=== PATIENT | female | born 1995 | race Hispanic/Latino ===

== ENCOUNTER 2019-09-11 16:41 | Inpatient (IN) | payer OTHER, SELFPAY ==
[2019-09-11] MEDS ORDERED: NA CHLORIDE 0.9% 2,000 ML ONE (17:33)
[2019-09-11] MEDS ORDERED: CEFTRIAXONE/SWI 1gm 1 GM/10 ML SYR ONE (17:33)
[2019-09-11 17:42] LABS: Absolute Lymphocytes (CBC) 0.7 K/uL (0.7-4.9); Basophils % 0.6 % (0-1.3); Hematocrit 29.1 % (36.0-45.0); Lymphocytes % 5.1 % (15.3-44.8); MPV 8.7 fL (7.6-11.3); RBC Red Blood Cell Count 4.83 M/uL (3.86-4.86)
[2019-09-11 18:11] LABS: Albumin 3.4 g/dL (3.4-5.0); Bilirubin Direct 0.3 mg/dL (0-0.2); Bilirubin Total 0.9 mg/dL (0.2-1.0); Potassium 3.1 mmol/L (3.5-5.1); Protein, Total 8.7 g/dL (6.4-8.2)
[2019-09-11 18:14] LABS: Urine White Blood Cell Casts OK
[2019-09-11 18:15] LABS: Blood Morphology Comment NOTED (NOT SEEN); Dohle Bodies NOTED; Hypochromasia 2+; Platelet Estimate ADEQ
[2019-09-11] MEDS ORDERED: ACETAMINOPHEN 500 MG TAB ONE (18:35)
[2019-09-11 18:53] LABS: Urine Bacteria >50 /HPF (<20)
[2019-09-11 18:54] LABS: Urine Culture Reflex Order NOT NEEDED
--- NOTE | 2019-09-11 19:07 | RAD REPORT ---
EXAM DESCRIPTION: CT - Abdomen Pelvis W Contrast - 09/11/2019 6:49 pm CLINICAL HISTORY: Abdominal pain COMPARISON: none. TECHNIQUE: Computed axial tomography of the abdomen pelvis was obtained. 100 cc Isovue-300 was admin istered intravenously. Oral contrast was not requested which limits evaluation of bowel. All CT scans are performed using dose optimization technique as appropriate and may include automated exposure control or mA/KV adjustment according to patient size. FINDINGS: The liver, spleen, pancreas, adrenal and left kidney appear unremarkable. Multiple low-density areas are scattered throughout right kidney extending to the periphery compatibl e with pyelonephritis. Stranding is seen within the perirenal fat. No hydronephrosis. There is no evidence of diverticulitis. A small umbilical hernia is present IMPRESSION: Moderate to marked right pyelonephritis
[2019-09-11 19:13] LABS: Urine Blood 2+ (NEG); Urine Glucose NEGATIVE (NEG); Urine Protein 2+ (NEG); Urine Specific Gravity 1.015 (1.005-1.030); Urine pH 5.5 (5.0-7.0)
--- NOTE | 2019-09-11 19:42 | ER ---
Nurse's Notes [facility] Name: Remington Maria Age: 24 yrs Sex: Female : 1995 Arrival Date: 09/11/2019 Time: 16:45 Bed 4 Private MD: Diagnosis: Sepsis;Pyelonephritis Presentation: 09/11 17:13 Presenting complaint: Patient states: Burning w/ urination, R mid back pain, nausea, ph and headache. Transition of care: patient was not received from another setting of care. Onset of symptoms was September 11, 2019. Risk Assessment: Do you want to hurt yourself or someone else? Patient reports no desire to harm self or others. Initial Sepsis Screen: Does the patient meet any 2 criteria? Temp <36.0*C (96.8*F)) or > 38.3*C (100.9*F). HR > 90 bpm. Yes Does the patient have a suspected source of infection? Yes: Dysuria/Frequency/Urgency/UTI. Care prior to arrival: Medication(s) given: Tylenol. 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 - Social history:: Smoking status: Patient/guardian denies using tobacco. - Ebola Screening: : No symptoms or risks identified at this time. Screenin:40 Abuse screen: Denies threats or abuse. Denies injuries from another. Nutritional hb screening: No deficits noted. Tuberculosis screening: No symptoms or risk factors identified. Fall Risk None identified. Assessment: 17:23 Reassessment: code sepsis called. iw 17:30 General: Appears in no apparent distress. ill, Behavior is calm, cooperative. hb 17:30 Pain: Pain currently is 4 out of 10 on a pain scale. Neuro: Level of Consciousness is hb awake, alert, obeys commands, Oriented to person, place, time, situation. Cardiovascular: Capillary refill < 3 seconds Patient's skin is warm and dry. Respiratory: Airway is patent Respiratory effort is even, unlabored, Respiratory pattern is regular, symmetrical, Breath sounds are clear bilaterally. GI: No signs and/or symptoms were reported involving the gastrointestinal system. : Reports right flank pain, pain with urination, urinary frequency and urgency. EENT: No signs and/or symptoms were reported regarding the EENT system. Derm: Skin is pink, warm \T\ dry. Musculoskeletal: No signs and/or symptoms reported regarding the musculoskeletal system. 17:36 Reassessment: Susan at bedside for blood culture second set prior to abx administered. sg 18:37 Reassessment: Pt c/o headache, CT [place] notified, tylenol administered as ordered. Bea ortega in CT notified of neg UPT. 18:37 Reassessment: Patient appears in no apparent distress at this time. pt reports headache sg described as pounding, is alleviated by applying pressure to the head with her hands. 20:29 Reassessment: Patient appears in no apparent distress at this time. No changes from ak1 previously documented assessment. Patient is alert, oriented x 3, equal unlabored respirations, skin warm/dry/pink. General: Appears Behavior is calm, cooperative. Vital Signs: 17:16 BP 101 / 73; Pulse 149; Resp 20; Temp 101.3; Pulse Ox 98% on R/A; Weight 61.23 kg; ph Height 5 ft. 6 in. (167.64 cm); 18:28 BP 106 / 70; Pulse 110; Resp 19 S; Temp 100.1; Pulse Ox 99% on R/A; Pain 8/10; sg 20:29 BP 103 / 65; Pulse 100; Resp 16; Temp 98.9; Pulse Ox 99% on R/A; ak1 21:17 BP 110 / 74; Pulse 116; Resp 18; Temp 98.9; Pulse Ox 100% on R/A; ak1 17:16 Body Mass Index 21.79 (61.23 kg, 167.64 cm) ph ED Course: 16:45 Patient arrived in ED. mr 17:16 Triage completed. ph 17:18 Arm band placed on. ph 17:20 Art Powers PA is PHCP. [facility] 17:20 Hiren Johnson MD is Attending Physician. [facility] 17:25 Inserted saline lock: 20 gauge in right antecubital area, using aseptic technique. hb Blood collected. 17:25 First set of blood cultures drawn by me. hb 17:30 Marybeth Walker, RN is Primary Nurse. hb 17:40 Patient has correct armband on for positive identification. Placed in gown. Bed in low hb position. Call light in reach. Side rails up X 1. 17:40 Second set of blood cultures drawn by lab staff. hb 18:30 Radiology exam delayed due to test not completed at this time. bq 18:47 CT completed. Patient tolerated procedure well. Patient moved back from CT. bq 18:49 CT Abd/Pelvis - IV Contrast Only In Process Unspecified. EDMS 19:22 Primary Nurse role handed off by Marybeth Walker, MARY ak1 19:22 Lola Krueger RN is Primary Nurse. ak1 19:40 Kate Yan MD is Hospitalizing Provider. m 20:31 No provider procedures requiring assistance completed. Patient admitted, IV remains in ak1 place. Administered Medications: 17:40 Drug: NS 0.9% (30 ml/kg) 30 ml/kg Route: IV; Rate: bolus; Site: right antecubital; hb 18:37 Follow up: Response: No adverse reaction; IV Status: Completed infusion; IV Intake: hb 2000ml 18:50 Follow up: Response: No adverse reaction; IV Status: Completed infusion; IV Intake: sg 2000ml 17:41 Drug: Rocephin - (cefTRIAXone) 1 grams Route: IVPB; Infused Over: 30 mins; Site: right hb antecubital; 17:42 Follow up: IV Status: Completed infusion; IV Intake: 10ml hb 18:37 Follow up: Response: No adverse reaction hb 18:36 Drug: Tylenol 1000 mg Route: PO; hb 19:00 Follow up: Response: No adverse reaction sg Intake: 17:42 IV: 10ml; Total: 10ml. hb 18:37 IV: 2000ml; Total: 2010ml. hb 18:50 IV: 2000ml; Total: 4010ml. sg Outcome: 19:41 Decision to Hospitalize by Provider. andrae 21:08 Admitted to Med/surg accompanied by tech, family with patient, via wheelchair, room ak1 423, with chart, Report called to Kylie 21:08 Condition: stable 21:08 Instructed on the need for admit. 21:43 Patient left the ED. ak1 Signatures: Dispatcher [employer] EDMS Beto Madera, RN RN Art Rivera PA PA jmm Rivera, Mary mr Bea Olvera Irene RN Lola Jones RN RN ak1 Kassandra Muhammad RN RN ph Baxter, Heather, RN RN
--- NOTE | 2019-09-11 19:42 | EDPHYS ---
Physician Documentation [facility] Name: Remington Maria Age: 24 yrs Sex: Female : 1995 Arrival Date: 09/11/2019 Time: 16:45 Bed 4 Private MD: ED Physician Hiren Johnson HPI: 09/11 17:31 This 24 yrs old Female presents to ER via Ambulatory with complaints of jmm Headache, Back Pain, Urinary Problem, Leg Pain. 17:31 The patient complains of pain in the right flank. Onset: The symptoms/episode jmm began/occurred gradually, 1 week(s) ago. Modifying factors: The symptoms are alleviated by nothing. the symptoms are aggravated by nothing. Associated signs and symptoms: Pertinent positives: dysuria, fever, nausea, vomiting. This is a 24 year old female with no chronic medical conditions that presents to the ED with complaints of right flank pain beginning 1 week ago. patient developed body aches and fever today. patient stated having dysuria on and off for the past 2 weeks. . 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 - Social history:: Smoking status: Patient/guardian denies using tobacco. - Ebola Screening: : No symptoms or risks identified at this time. ROS: 17:31 Constitutional: Negative for fever, chills, and weight loss, Cardiovascular: Negative jmm for chest pain, palpitations, and edema, Respiratory: Negative for shortness of breath, cough, wheezing, and pleuritic chest pain. 17:31 Abdomen/GI: Positive for nausea, vomiting, and diarrhea. 17:31 Back: Positive for flank pain, on the right. 17:31 : Positive for urinary symptoms. 17:31 Neuro: Positive for headache. 17:31 All other systems are negative. Exam: 17:31 Constitutional: This is a well developed, well nourished patient who is awake, alert, jmm and in no acute distress. Head/Face: atraumatic. Eyes: EOMI, no conjunctival erythema appreciated ENT: Moist Mucus Membranes Neck: Trachea midline, Supple Chest/axilla: Normal chest wall appearance and motion. 17:31 Respiratory: Normal respirations, no respiratory distress appreciated Abdomen/GI: Non distended, soft Back: Normal ROM Skin: General appearance color normal MS/ Extremity: Moves all extremities, no obvious deformities appreciated, no edema noted to the lower extremities Neuro: Awake and alert, normal gait Psych: Behavior is normal, Mood is normal, Patient is cooperative and pleasant 17:31 Cardiovascular: Rate: tachycardic, Rhythm: regular. 17:31 Back: CVA tenderness, that is mild, is noted on the right. Vital Signs: 17:16 BP 101 / 73; Pulse 149; Resp 20; Temp 101.3; Pulse Ox 98% on R/A; Weight 61.23 kg; ph Height 5 ft. 6 in. (167.64 cm); 18:28 BP 106 / 70; Pulse 110; Resp 19 S; Temp 100.1; Pulse Ox 99% on R/A; Pain 8/10; sg 20:29 BP 103 / 65; Pulse 100; Resp 16; Temp 98.9; Pulse Ox 99% on R/A; ak1 21:17 BP 110 / 74; Pulse 116; Resp 18; Temp 98.9; Pulse Ox 100% on R/A; ak1 17:16 Body Mass Index 21.79 (61.23 kg, 167.64 cm) ph MDM: 17:31 Patient medically screened. [facility] 19:39 Data reviewed: vital signs, nurses notes. Counseling: I had a detailed discussion with [facility] the patient and/or guardian regarding: the historical points, exam findings, and any diagnostic results supporting the discharge/admit diagnosis, lab results, radiology results, the need for further work-up and treatment in the hospital. ED course: Procalcitonin is elevated. Patient continues to have pain. Will admit for IV abx and further observation. . 09/11 17:32 Order name: Basic Metabolic Panel; Complete Time: 18:17 [facility] 09/11 17:32 Order name: CBC with Diff; Complete Time: 18:17 [facility] 09/11 17:32 Order name: Creatinine for Radiology; Complete Time: 18:17 [facility] 09/11 17:32 Order name: Hepatic Function; Complete Time: 18:17 [facility] 09/11 17:32 Order name: Lipase; Complete Time: 18:17 [facility] 09/11 17:32 Order name: Lactate; Complete Time: 18:17 [facility] 09/11 17:32 Order name: Procalcitonin; Complete Time: 19:10 [facility] 09/11 17:32 Order name: Blood Culture Adult (2) [facility] 09/11 17:34 Order name: Urine Culture [facility] 09/11 17:34 Order name: Urine Microscopic Only; Complete Time: 19:10 [facility] 09/11 17:51 Order name: CBC Smear Scan; Complete Time: 18:17 [facility] 09/11 18:18 Order name: Flu; Complete Time: 19:10 [facility] 09/11 18:56 Order name: Urine Dipstick--Ancillary (enter results) [facility] 09/11 18:56 Order name: Urine --Ancillary (enter results) [facility] 09/11 18:20 Order name: CT Abd/Pelvis - IV Contrast Only; Complete Time: 19:10 [facility] 09/11 20:29 Order name: CBC with Automated Diff [facility] 09/11 20:29 Order name: CBC with Automated Diff [facility] 09/11 20:29 Order name: Comprehensive Metabolic Panel [facility] 09/11 20:29 Order name: Comprehensive Metabolic Panel [facility] 09/11 20:29 Order name: C-Reactive Protein [facility] 09/11 20:29 Order name: C-Reactive Protein [facility] 09/11 20:29 Order name: Procalcitonin [facility] 09/11 20:29 Order name: Procalcitonin [facility] 09/11 20:29 Order name: Protime (+INR) [facility] 09/11 20:29 Order name: Protime (+INR) [facility] 09/11 20:29 Order name: PTT, Activated Partial Thromb [facility] 09/11 20:29 Order name: PTT, Activated Partial Thromb [facility] 09/11 20:29 Order name: Lactate [facility] 09/11 20:29 Order name: Lactate [facility] 09/11 17:32 Order name: IV Saline Lock; Complete Time: 17:43 [facility] 09/11 17:32 Order name: Labs collected and sent; Complete Time: 17:43 [facility] 09/11 17:34 Order name: Urine Dipstick-Ancillary (obtain specimen); Complete Time: 18:36 [facility] 09/11 20:29 Order name: CONS Pharmacy Consult [facility] 09/11 20:29 Order name: Regular [facility] Administered Medications: 17:40 Drug: NS 0.9% (30 ml/kg) 30 ml/kg Route: IV; Rate: bolus; Site: right antecubital; hb 18:37 Follow up: Response: No adverse reaction; IV Status: Completed infusion; IV Intake: hb 2000ml 18:50 Follow up: Response: No adverse reaction; IV Status: Completed infusion; IV Intake: sg 2000ml 17:41 Drug: Rocephin - (cefTRIAXone) 1 grams Route: IVPB; Infused Over: 30 mins; Site: right hb antecubital; 17:42 Follow up: IV Status: Completed infusion; IV Intake: 10ml hb 18:37 Follow up: Response: No adverse reaction hb 18:36 Drug: Tylenol 1000 mg Route: PO; hb 19:00 Follow up: Response: No adverse reaction sg Disposition: 09/12 07:26 Co-signature as Attending Physician, Hiren Johnson MD I agree with the assessment and kdr plan of care. Disposition: 09/11/19 19:41 Hospitalization ordered by Kate Yan for Inpatient Admission. Preliminary diagnosis are Sepsis, Pyelonephritis. - Bed requested for Telemetry/MedSurg (Inpatient). - Status is Inpatient Admission. ak1 - Condition is Stable. - Problem is new. - Symptoms are unchanged. UTI on Admission? Yes Signatures: Dispatcher [employer] [facility] Hiren Johnson MD MD kdr Mickail, Joel, PA PA [facility] Lola Krueger RN RN ak Kassandra Muhammad RN RN Sarahi Oswald RN RN Marybeth Walker RN RN Beto Madera RN sg Corrections: (The following items were deleted from the chart) 09/11 21:00 19:41 Hospitalization Ordered by Kate Yan MD for Inpatient Admission. Preliminary diagnosis is Sepsis; Pyelonephritis. Bed requested for Telemetry/MedSurg (Inpatient). Status is Inpatient Admission. Condition is Stable. Problem is new. Symptoms are unchanged. UTI on Admission? Yes. yesenia 21:43 21:00 09/11/2019 19:41 Hospitalization Ordered by Kate Yan MD for Inpatient ak1 Admission. Preliminary diagnosis is Sepsis; Pyelonephritis. Bed requested for Telemetry/MedSurg (Inpatient). Status is Inpatient Admission. Condition is Stable. Problem is new. Symptoms are unchanged. UTI on Admission? Yes. cg
[2019-09-11] MEDS ORDERED: MORPHINE 4 MG/ML SYR IV PRN (20:20)
[2019-09-11] MEDS ORDERED: ONDANSETRON 4 MG/2 ML VIAL IV PRN (20:20)
[2019-09-11] MEDS ORDERED: NA CHLORIDE 0.9% 1,000 ML IV ONE (22:41)
[2019-09-11] MEDS: ACETAMINOPHEN 325 MG TABLET PO SCH (23:00)
[2019-09-11] MEDS: NA CHLORIDE 0.9% 1,000 ML IV SCH (23:01)
[2019-09-11 23:13] VITALS: BMI 22.2
[2019-09-12] MEDS: NA CHLORIDE 0.9% 1,000 ML IV SCH ×3 (04:25→19:47)
[2019-09-12] MEDS: ACETAMINOPHEN 500 MG TAB PO PRN ×3 (04:25→19:51)
[2019-09-12 06:06] LABS: Absolute Lymphocytes (CBC) 0.4 K/uL (0.7-4.9); Basophils % 0.2 % (0-1.3); Hematocrit 20.5 % (36.0-45.0); Lymphocytes % 4.5 % (15.3-44.8); MPV 8.8 fL (7.6-11.3); RBC Red Blood Cell Count 3.39 M/uL (3.86-4.86)
[2019-09-12 06:11] LABS: Protime INR 1.27
[2019-09-12 07:06] LABS: Hematocrit 20.7 % (36.0-45.0)
--- NOTE | 2019-09-12 08:08 | P.HP ---
Certification for Inpatient Patient admitted to: Inpatient With expected LOS: >2 Midnights Patient will require the following post-hospital care: None Practitioner: I am a practitioner with admitting privileges, knowledge of patient current condition, hospital course, and medical plan of care. Services: Services provided to patient in accordance with Admission requirements found in Title 42 Section 412.3 of the Code of Federal Regulations Patient History Date of Service: 09/11/19 Reason for admission: [id number] History of Present Illness: Patient is a 24-year-old female came to the hospital with right-sided pyelonephritis. Patient was having flank tenderness for the last couple of days. She also started having nausea and vomiting. She has had prior UTIs and had a kidney infection few years ago but prior to that she does not really have any medical issues. She recently had a normal and she states her child is doing well. She is currently breast-feeding. She is not wanting to take a lot of medications that could affect the baby. At this time, she does have a significant right-sided pyelonephritis. Her procalcitonin level is elevated. Will go ahead and hydrate her aggressively and continue IV antibiotics. Await urine culture and blood culture results. Hopefully we can get her infection under better control over the next 24-48 hr. She is positive for systemic inflammatory response. Will continue monitoring her closely during her hospitalization. Allergies No Known Allergies Allergy (Verified 12/09/12 05:26) Home Medications: NK [No Home Meds] 09/11/19 - Past Medical/Surgical History Has patient received pneumonia vaccine in the past: No Diabetic: No -: Normal vaginal delivery Past Surgical History: Patient denies surgical history - Family History Father Family History: Reviewed- Non-Contributory - Social History Smoking Status: Never smoker Alcohol use: No CD- Drugs: No Caffeine use: Yes Place of Residence: Home Review of Systems 10-point ROS is otherwise unremarkable Physical Examination - Vital Signs Temperature: 98.8 F Blood Pressure: 115/64 Pulse: 112 Respirations: 16 Pulse Ox (%): 100 - Physical Exam General: Alert, In no apparent distress, Oriented x3 HEENT: Atraumatic, PERRLA, Mucous membr. moist/pink, EOMI, Sclerae nonicteric Neck: Supple, 2+ carotid pulse no bruit, No LAD, Without JVD or thyroid abnormality Respiratory: Clear to auscultation bilaterally, Normal air movement Cardiovascular: Regular rate/rhythm, Normal S1 S2, No murmurs Gastrointestinal: Normal bowel sounds, Soft and benign, Non-distended, No rebound, No guarding, Tenderness Musculoskeletal: No clubbing, No swelling, No tenderness Integumentary: No rashes Neurological: Normal gait, Normal speech, Normal strength at 5/5 x4 extr, Normal tone, Sensation intact, Cranial nerves 3-12 intact, Normal affect Lymphatics: No axilla or inguinal lymphadenopathy - Studies Laboratory Data (last 24 hrs) 09/11/19 17:30: Creatinine 1.06 09/11/19 17:30: WBC 12.9 H, Hgb 9.4 L, Hct 29.1 L, Plt Count 191 09/11/19 17:30: Sodium 131 L, Potassium 3.1 L, BUN 10, Creatinine 1.10, Glucose 132 H, Total Bilirubin 0.9, AST 21, ALT 21, Alkaline Phosphatase 88, Lipase 182 Microbiology Data (last 24 hrs): 09/11/19 18:23 Nasopharnyx Influenza Type A Antigen Screen - Final 09/11/19 18:23 Nasopharnyx Influenza Type B Antigen Screen - Final Assessment & Plan - Problems (Diagnosis) (1) Pyelonephritis of right kidney Current Visit: Yes Status: Acute (2) Anemia Current Visit: Yes Status: Acute (3) Mother currently breast-feeding Current Visit: Yes Status: Acute - Plan 1. Continue with IV hydration 2. Continue with IV antibiotics 3. Continue with pain control; schedule Tylenol for 24hrs; then p.r.n. 4. Diet as tolerated 5. Monitor medications closely as patient is 6. We will monitor CBC, BMP, LFTs closely 7. GI and DVT prophylaxis Discharge Plan: Home Plan to discharge in: Greater than 2 days - Advance Directives Does patient have a Living Will: No Does patient have a Durable POA for Healthcare: No - Code Status/Comfort Care Code Status Assessed: Yes Code Status: Full Code Critical Care: No Time Spent Managing PTS Care (In Minutes): 45
--- NOTE | 2019-09-12 08:10 | P.PN ---
Date of Service: 09/12/19 Patient is doing well. She is feeling a little bit better with no new complaints. She still getting tachycardic when moving. Repeat labs in the morning. Repeat procalcitonin level as well Sepsis Focused Assessment - Focused Assessment Complete? Sepsis Focused Assessment Completed?: Yes - Sepsis Screen Result Severe Sepsis: Positive - Evaluation Current stage of sepsis: Severe sepsis - Vital Signs Reviewed: Yes Temperature: 99.5 F Heart rate: 126 Blood Pressure: 115/64 Respiratory Rate: 16 O2 Sat by Pulse Oximetry: 100 - Examination Date exam was performed: 09/12/19 Time exam was performed: 04:00 Heart: Tachycardia Lungs: Clear bilaterally Peripheral pulses: 3+ Normal Peripheral pulse location: Radial Capillary refill: <2 Seconds Skin examination: Normal turgor
[2019-09-12 08:12] LABS: ALT/SGPT 14 U/L (12-78); AST/SGOT 14 U/L (15-37); Albumin 2.3 g/dL (3.4-5.0); Alkaline Phosphatase 60 U/L (45-117); BUN Blood Urea Nitrogen 8 mg/dL (7-18); Bicarbonate 22 mmol/L (21-32); Bilirubin Total 0.5 mg/dL (0.2-1.0); Glucose Level 112 mg/dL (74-106); Potassium 3.1 mmol/L (3.5-5.1); Protein, Total 5.9 g/dL (6.4-8.2); Sodium Level 137 mmol/L (136-145)
[2019-09-12 08:59] LABS: Ferritin 64.5 ng/mL (8-388)
--- NOTE | 2019-09-12 10:11 | EKG ---
Test Date: 2019-09-11 Test Time: 17:33:07 Museum Docent: SWG MEASUREMENT RESULTS: Intervals: Rate: 138 CA: 116 QRSD: 76 QT: 286 QTc: 433 [place]: P: 53 CA: 116 QRS: -55 T: 6 INTERPRETIVE STATEMENTS: Sinus tachycardia Left anterior fascicular block Nonspecific T wave abnormality Abnormal ECG No previous ECG available for comparison Electronically Signed On 09-12-19 10:10:45 SEWER by Jh Haq
[2019-09-12] MEDS ORDERED: NA CHLORIDE 0.9% 250 ML ONE (10:22)
[2019-09-12] MEDS ORDERED: TRAMADOL HCL 50 MG TAB PO PRN (12:06)
[2019-09-12] MEDS ORDERED: HYDROCODONE/APAP 7.5/325 MG TAB PO PRN (12:06)
--- NOTE | 2019-09-12 12:12 | P.PN ---
Subjective Date of Service: 09/12/19 Primary Care Provider: [employer]OC[employer]ba Chief Complaint: [id number] Subjective: Other (Patient feeling better. Less pain noted.) Physical Examination - Vital Signs Temperature: 99.9 F Blood Pressure: 105/57 Pulse: 126 Respirations: 16 Pulse Ox (%): 100 - Physical Exam General: Alert, In no apparent distress, Oriented x3, Cooperative HEENT: Atraumatic Neck: Supple Respiratory: Clear to auscultation bilaterally, Normal air movement Cardiovascular: Abnormal pulses (Mild sinus tachycardia) Gastrointestinal: Normal bowel sounds, Soft and benign, Non-distended, Tenderness (Less pain to the right flank) Musculoskeletal: No erythema, No tenderness, No warmth Integumentary: No tenderness/swelling, No erythema, No warmth, No cyanosis Neurological: Normal speech, Normal strength at 5/5 x4 extr, Normal tone, Normal affect - Studies Laboratory Data (last 24 hrs) 09/11/19 17:30: Creatinine 1.06 09/11/19 17:30: WBC 12.9 H, Hgb 9.4 L, Hct 29.1 L, Plt Count 191 09/11/19 17:30: Sodium 131 L, Potassium 3.1 L, BUN 10, Creatinine 1.10, Glucose 132 H, Total Bilirubin 0.9, AST 21, ALT 21, Alkaline Phosphatase 88, Lipase 182 Microbiology Data (last 24 hrs): 09/11/19 18:23 Nasopharnyx Influenza Type A Antigen Screen - Final 09/11/19 18:23 Nasopharnyx Influenza Type B Antigen Screen - Final Medications List Reviewed: Yes Assessment & Plan Discharge Plan: Home Plan to discharge in: 48 Hours Physician Review Additional Text: Impression: Right pyelonephritis Acute on chronic anemia likely related to above with iron and B12 deficiency Hypokalemia with dehydration Plan: Right pyelonephritis: Continue with IV antibiotic therapy. Await urine and blood culture results. Continue with aggressive IV fluid hydration. History of status post . Patient gave this past June. Patient still . Patient also anemic. Patient will receive 1 unit of blood. Will monitor hemoglobin closely. Encourage incentive spirometer. Will have patient continue with breast pump. Encourage formula to child. Continue monitor closely. Anticipate discharge in the next 48-72 hr. Acute on chronic anemia likely related to above with iron and B12 deficiency: Patient will receive 1 unit of blood. Will monitor closely. Patient will require iron and B12 supplementation. Hypokalemia with dehydration: Continue aggressive fluid hydration. Potassium supplementation initiated. Time Spent Managing Pts Care (In Minutes): 55
[2019-09-12] MEDS ORDERED: POTASSIUM 25 MEQ EFFERV TAB PO ONE (14:00)
[2019-09-12] MEDS: CYANOCOBALAMIN 1,000 MCG TAB PO SCH (14:11)
[2019-09-12] MEDS: FOLIC ACID 1 MG TABLET PO SCH (14:11)
[2019-09-12 16:10] LABS: Hematocrit 25.7 % (36.0-45.0)
[2019-09-12] MEDS: CEFTRIAXONE/SWI 1gm 1 GM/10 ML SYR IVP SCH (17:13)
[2019-09-12] MEDS ORDERED: CEFTRIAXONE 1 GM/NS 50 ML 1 GM/50 ML BAG IV SCH (18:00)
[2019-09-12] MEDS ORDERED: POTASSIUM CL SA 10 MEQ TAB PO ONE (22:00)
[2019-09-12] MEDS: ACETAMINOPHEN 325 MG TABLET PO SCH (22:50)
[2019-09-13 00:05] LABS: Hematocrit 24.4 % (36.0-45.0)
[2019-09-13] MEDS: NA CHLORIDE 0.9% 1,000 ML IV SCH ×2 (03:57→13:10)
[2019-09-13 06:34] LABS: Absolute Lymphocytes (CBC) 0.9 K/uL (0.7-4.9); Basophils % 0.2 % (0-1.3); Hematocrit 24.3 % (36.0-45.0); Lymphocytes % 12.4 % (15.3-44.8); MPV 8.8 fL (7.6-11.3); RBC Red Blood Cell Count 3.85 M/uL (3.86-4.86)
[2019-09-13 06:46] LABS: BUN Blood Urea Nitrogen 5 mg/dL (7-18); Bicarbonate 23 mmol/L (21-32); Glucose Level 100 mg/dL (74-106); Magnesium 2.2 mg/dL (1.8-2.4); Potassium 3.9 mmol/L (3.5-5.1); Sodium Level 142 mmol/L (136-145)
[2019-09-13] MEDS: FOLIC ACID 1 MG TABLET PO SCH (08:24)
[2019-09-13] MEDS: CYANOCOBALAMIN 1,000 MCG TAB PO SCH (08:24)
[2019-09-13] MEDS: SOD FERRIC GLUC COMPLX/SUCROSE 250 MG in NA CHLORIDE 0.9% 250 ML IV SCH (10:33)
[2019-09-13 11:45] LABS: Absolute Lymphocytes (CBC) 0.9 K/uL (0.7-4.9); Basophils % 0.3 % (0-1.3); Hematocrit 26.7 % (36.0-45.0); Lymphocytes % 10.7 % (15.3-44.8); MPV 8.6 fL (7.6-11.3); RBC Red Blood Cell Count 4.19 M/uL (3.86-4.86)
[2019-09-13] MEDS ORDERED: POTASSIUM 25 MEQ EFFERV TAB PO ONE (13:00)
--- NOTE | 2019-09-13 14:13 | P.PN ---
Subjective Date of Service: 09/13/19 Primary Care Provider: [employer] Chief Complaint: [id number] Subjective: Improving, Doing well Physical Examination - Vital Signs Temperature: 97.9 F Blood Pressure: 114/64 Pulse: 104 Respirations: 16 Pulse Ox (%): 100 - Physical Exam General: Alert, In no apparent distress, Oriented x3, Cooperative HEENT: Atraumatic Neck: Supple Respiratory: Clear to auscultation bilaterally, Normal air movement Cardiovascular: Normal pulses, Regular rate/rhythm Gastrointestinal: Normal bowel sounds, Soft and benign, Non-distended Neurological: Normal speech, Normal strength at 5/5 x4 extr, Normal tone, Normal affect - Studies Medications List Reviewed: Yes Assessment & Plan Discharge Plan: Home Plan to discharge in: 24 Hours Physician Review Additional Text: Impression: Right pyelonephritis Acute on chronic anemia likely related to above with iron and B12 deficiency Hypokalemia with dehydration Plan: Right pyelonephritis: Continue with IV antibiotic therapy. Await urine and blood culture results. Will adjust IV fluids. History of status post . IV Iron started. Anticipate discharge tomorrow. Acute on chronic anemia likely related to above with iron and B12 deficiency: Patient received 1 unit of blood. Continue IV iron and B12 supplementation. Hypokalemia with dehydration: IV fluids adjusted. Potassium supplementation initiated. Time Spent Managing Pts Care (In Minutes): 55
[2019-09-13] MEDS: NACHLORIDE 0.45% 1,000 ML IV SCH ×2 (15:00→22:31)
[2019-09-13 15:37] LABS: C.diff Antigen/Toxin Ag neg : Tox neg (NEG : NEG)
[2019-09-13] MEDS: CEFTRIAXONE/SWI 1gm 1 GM/10 ML SYR IVP SCH (17:23)
[2019-09-13] MEDS: ACETAMINOPHEN 325 MG TABLET PO SCH (22:33)
[2019-09-14 04:49] LABS: Absolute Lymphocytes (CBC) 1.6 K/uL (0.7-4.9); Basophils % 0.4 % (0-1.3); Hematocrit 25.3 % (36.0-45.0); Lymphocytes % 23.8 % (15.3-44.8); MPV 9.1 fL (7.6-11.3); RBC Red Blood Cell Count 3.97 M/uL (3.86-4.86)
[2019-09-14 04:50] LABS: BUN Blood Urea Nitrogen 4 mg/dL (7-18); Bicarbonate 24 mmol/L (21-32); Glucose Level 88 mg/dL (74-106); Magnesium 2.1 mg/dL (1.8-2.4); Potassium 3.6 mmol/L (3.5-5.1); Sodium Level 142 mmol/L (136-145)
[2019-09-14] MEDS ORDERED: POTASSIUM CL SA 10 MEQ TAB PO ONE (05:43)
[2019-09-14] MEDS: CYANOCOBALAMIN 1,000 MCG TAB PO SCH (08:56)
[2019-09-14] MEDS: FOLIC ACID 1 MG TABLET PO SCH (08:56)
[2019-09-14] MEDS: SOD FERRIC GLUC COMPLX/SUCROSE 250 MG in NA CHLORIDE 0.9% 250 ML IV SCH (08:56)
--- NOTE | 2019-09-14 09:23 | P.DS ---
Admission Date: 09/11/19 Discharge Date: 09/14/19 Primary Care Provider: [facility]S [facility] Disposition: ROUTINE DISCHARGE Discharge Condition: GOOD Reason for Admission: [id number] Consultations: none Procedures: CT scan: FINDINGS: The liver, spleen, pancreas, adrenal and left kidney appear unremarkable. Multiple low-density areas are scattered throughout right kidney extending to the periphery compatible with pyelonephritis. Stranding is seen within the perirenal fat. No hydronephrosis. There is no evidence of diverticulitis. A small umbilical hernia is present IMPRESSION: Moderate to marked right pyelonephritis Medical Problem List: Right pyelonephritis Acute on chronic anemia secondary to iron and B12 deficiency Hypokalemia with dehydration Brief History of Present Illness: 24-year-old female presented with right flank pain. Patient also reported dysuria. Patient found to have right pyelonephritis. Patient was admitted for further evaluation and treatment. Hospital Course: Patient presented with right flank pain and dysuria. This was secondary to right pyelonephritis. CT scan reviewed. Patient did well with IV antibiotic therapy and IV fluids. At discharge she is without any significant pain or dysuria. Wound culture grew mixed kelechi. Blood cultures negative. At discharge patient will continue with antibiotic therapy Keflex 500 mg 1 pill twice daily for 7 more days. Recommend UTI prevention. Education provided. Patient will establish care in the area to follow up this hospitalization. Patient with acute on chronic anemia. Patient with iron and B12 deficiency. Patient did receive 1 unit of blood. Hemoglobin has remained stable. Patient received IV iron and B12 supplementation. At discharge she will continue with iron 325 mg 1 pill 3 times a day and B12 supplementation daily. Recommend to recheck lab-CBC, iron, B12 in 2-4 weeks to monitor her progress. Patient is status post /delivery June 2018. Patient may need to hold until the patient has completed treatment for pyelonephritis. Patient may continue with after that time. Patient currently on control medication. Patient may restart control medication. Patient will need to add additional alternative means for control during the course of her treatment and likely for the next month. Vital Signs/Physical Exam: Temp Pulse Resp BP Pulse Ox 97.1 F 71 16 103/64 99 09/14/19 04:00 09/14/19 04:00 09/14/19 04:00 09/14/19 04:00 09/14/19 04:00 General: Alert, In no apparent distress, Oriented x3, Cooperative HEENT: Atraumatic Neck: Supple Respiratory: Clear to auscultation bilaterally, Normal air movement Cardiovascular: Normal pulses, Regular rate/rhythm Gastrointestinal: Normal bowel sounds, Soft and benign, Non-distended, No tenderness, No masses, No rebound, No guarding Musculoskeletal: No erythema, No tenderness, No warmth Integumentary: No tenderness/swelling, No erythema, No warmth, No cyanosis Neurological: Normal speech, Normal strength at 5/5 x4 extr, Normal tone, Normal affect Laboratory Data at Discharge: WBC 6.6 K/uL (4.3-10.9) D 09/14/19 03:36 Hgb 8.1 g/dL (12.0-15.0) L 09/14/19 03:36 Hct 25.3 % (36.0-45.0) L 09/14/19 03:36 Plt Count 149 K/uL (152-406) L 09/14/19 03:36 PT 14.9 SECONDS (9.5-12.5) H 09/12/19 05:13 INR 1.27 09/12/19 05:13 APTT 29.9 SECONDS (24.3-36.9) 09/12/19 05:13 Sodium 142 mmol/L (136-145) 09/14/19 03:36 Potassium 3.6 mmol/L (3.5-5.1) 09/14/19 03:36 BUN 4 mg/dL (7-18) L 09/14/19 03:36 Creatinine 0.52 mg/dL (0.55-1.3) L 09/14/19 03:36 Glucose 88 mg/dL (74-106) 09/14/19 03:36 Magnesium 2.1 mg/dL (1.8-2.4) 09/14/19 03:36 Total Bilirubin 0.5 mg/dL (0.2-1.0) 09/12/19 05:13 AST 14 U/L (15-37) L 09/12/19 05:13 ALT 14 U/L (12-78) 09/12/19 05:13 Alkaline Phosphatase 60 U/L (45-117) 09/12/19 05:13 Lipase 182 U/L (73-393) 09/11/19 17:30 Home Medications: Cephalexin [Keflex] 500 mg PO BID #14 cap 09/14/19 Cyanocobalamin (Vitamin B-12) [Vitamin B-12] 1,000 mcg PO DAILY #90 tablet 09/14 Ferrous Sulfate [Iron] 325 mg PO TID #90 tablet 09/14/19 New Medications: Cephalexin [Keflex] 500 mg PO BID #14 cap Cyanocobalamin (Vitamin B-12) [Vitamin B-12] 1,000 mcg PO DAILY #90 tablet Ferrous Sulfate [Iron] 325 mg PO TID #90 tablet Patient Discharge Instructions: 1. Recommend to establish care with a PCP to follow up this hospitalization. 2. Patient presented with right flank pain and dysuria. This was secondary to right pyelonephritis. CT scan reviewed. Patient did well with IV antibiotic therapy and IV fluids. At discharge she is without any significant pain or dysuria. Wound culture grew mixed kelechi. Blood cultures negative. At discharge patient will continue with antibiotic therapy Keflex 500 mg 1 pill twice daily for 7 more days. Recommend UTI prevention. Education provided. Patient will establish care in the area to follow up this hospitalization. 3. Patient with acute on chronic anemia. Patient with iron and B12 deficiency. Patient did receive 1 unit of blood. Hemoglobin has remained stable. Patient received IV iron and B12 supplementation. At discharge she will continue with iron 325 mg 1 pill 3 times a day and B12 supplementation daily. Recommend to recheck lab-CBC, iron, B12 in 2-4 weeks to monitor her progress. 4. Patient is status post / delivery June 2018. Patient may need to hold until the patient has completed treatment for pyelonephritis. Patient may continue with after that time. Patient currently on control medication. Patient may restart control medication. Patient will need to add additional alternative means for control during the course of her treatment and likely for the next month. Diet: AHA Activity: Ad isabel Time spent managing pt's care (in minutes): 55
[2019-09-14] MEDS: NACHLORIDE 0.45% 1,000 ML IV SCH (11:00)
[2019-09-14 11:17] VITALS: O2SAT 99
[2019-09-14 12:07] VITALS: BP 102/72; TEMP 97.3
== END 2019-09-14 13:10 | disposition home or self-care (01) | DRG 690 ==
LOC: ER 16:41 → ERHOLD 20:23 → 4TH 21:33
PROVIDERS: ADMIT Hospitalist; ATTEND Hospitalist
PROC: 30233N1 Transfusion of Nonautologous Red Blood Cells into Peripheral Vein, Percutaneous Approach (ICD-10-PCS; principal; 2019-09-12)
DX: N10 Acute pyelonephritis (principal); D51.9 Vitamin B12 deficiency anemia, unspecified; E87.6 Hypokalemia; E86.0 Dehydration
CPT/HCPCS: 36415; 36430; 74177; 80048; 80053; 80076; 81003; 81015; 81025; 82607; 82728; 83540; 83605; 83690; 83735; 84132; 84145; 84466; 85014; 85018; 85025; 85610; 85730; 86140; 86850; 86900; 86901; 87040; 87086; 87088; 87324; 87449; 87804; 93005; 94760; 96361; 96365; 96374; 96375; 99285; J0696; J2405; J2916; J7030; P9016; Q9967